=== PATIENT | female | born 1965 | race Caucasian/White ===

== ENCOUNTER 2024-10-04 16:49 | Inpatient (IN) | payer MEDICARE, OTHER, SELFPAY ==
[2024-10-04] VITALS (12 sets, daily range): BP systolic 88–127; BP diastolic 49–94; BMI 18.5; BMI 20.8
[2024-10-04 11:57] LABS: % Basophils 0.7 % (0-2); % Eosinophils 1.5 % (0-6); % Immature Granulocytes 0.2 % (0-0.5); % Lymphocytes 40.1 % (20.5-51.1); % Monocytes 8.6 % (1.7-9.3); % Neutrophils 48.9 % (42.2-75.2); Absolute Basophils 0.1 10^3/uL (0-0.2); Absolute Eosinophils 0.1 10^3/uL (0-0.7); Absolute Lymphocytes 3.5 10^3/uL (1.2-3.4); Absolute Monocytes 0.7 10^3/uL (0.1-0.6); Absolute Neutrophils 4.2 10^3/uL (1.4-6.5); Hematocrit 42.9 % (37.0-47.0); Hemoglobin 15.4 g/dL (12.0-16.0); Mean Corp Hgb Conc. 35.9 g/dL (33.0-37.0); Mean Corpuscular Hgb 34.9 pg (27.0-31.0); Mean Corpuscular Volume 97.3 fL (81.0-99.0); Mean Platelet Volume 8.8 fL (7.4-10.4); Nucleated Red Blood Cells % 0 %; Platelet Count 347 10^3/uL (130-400); Red Blood Cell Count 4.41 10^6/uL (4.20-5.40); Red Cell Dist. Width 12.4 % (11.5-14.5); White Blood Cell Count 8.6 10^3/uL (4.8-10.8)
[2024-10-04 12:08] LABS: Blood Urea Nitrogen 14 mg/dl (7-17); Carbon Dioxide 29 mmol/L (22-30); Chloride 94 mmol/L (98-107); Glucose 115 mg/dl (70-99); Sodium 136 mmol/L (135-145); eGFR > 60.00
--- NOTE | 2024-10-04 14:02 | ED.GENMED ---
History of Present Illness
General
Chief Complaint: Failure to Thrive
Time Seen by Provider: 10/04/24 13:29
History of Present Illness
History of Present Illness:
59-year-old female with history of breast cancer with metastasis to the bone presents to the emergency department for evaluation of intractable nausea and vomiting. This is apparently been ongoing for the past several weeks and she has been able to
eat or drink much in the past week or more. She has been admitted to both [facility] in [facility] for the symptoms, underwent an EGD just under 2 weeks ago at [place] that did not show any obvious abnormalities. She was seen by
visiting nurses today who felt that she looked unwell and referred her to come to the emergency department. She follows with [facility], Dr Nichols.
Review of Systems
Review of Systems
Allergies reviewed?: Yes
All Other Systems: ROS reviewed and negative except as documented in HPI and ROS
Phy Exam
Physical Exam
Physical Exam:
GEN: Thin and frail, appears uncomfortable
Eyes: PERRLA, EOMs intact, no scleral icterus
HENT: NCAT, oral mucosa moist, no JVD, no cervical adenopathy.
Lungs: CTAB, no wheezes, rales, rhonchi, normal chest wall excursion
Cardiac: Mildly tachycardic, regular
Abdomen: Soft, diffusely tender to all 4 quadrants,
Neuro: AO x 3
MSK: No gross deformity or ecchymosis. No edema. No digital clubbing
Skin: No rashes, petechiae. Normal color, no pallor or jaundice.
Psych: Calm, cooperative, proper hygiene
Course
Orders/Labs/Results
Orders:
Orders
10/04/24 Breakfast
Clear Liquid
At Your Request: Limited, Corporate Representative Required
10/04/24 11:35
Basic Metabolic Panel Urgent
Complete Blood Count/With Diff Urgent
10/04/24 14:03
Comprehensive Metabolic Panel Urgent
Urinalysis Reflex To Culture Urgent
Date Specimen was Collected: 10/04/24
Time Specimen was Collected: 14:02
Urine Microscopic Reflex Cult Urgent
10/04/24 14:58
Prochlorperazine [Compazine] 10 mg IM NOW STA
10/04/24 15:03
CR Obstruct Series W/pa Chest Urgent
Comment:
Reason For Exam: abd pain, constipation
10/04/24 15:16
Prochlorperazine [Compazine] 10 mg IV NOW STA
10/04/24 16:20
Lorazepam [Ativan] 0.5 mg IV NOW STA
10/04/24 16:25
Admit/Transfer Patient As Directed
Co-Sign Provider:
Level of Care: Inpatient admission
Assign to:: Medical/Surgical
Physician / Group: Elizabethy
Diagnosis: Intractable Nausea/Vomiting
Reason for Hospitalization: antiemetics, IVFs
Expected length of stay greater than two midnights?: Yes
ELOS- Estimated Length of Stay in days: 3
I certify the patient meets the requirements for IP care: Yes
0.9% Sodium Chloride [Nss (Preservative Free)] 0.25 ml IV NOW STA
PRN Pain Medication Management As Directed
May give lesser potent ordered pain med per pt: Yes
preference::
Protocol:: Medication orders for pain may be administered in a
manner that supports deferring to patient preference
when the pt is:
- Requesting an ordered lesser potent pain medication.
Least to most potent pain medications are defined
as: acetaminophen < NSAID < tramadol < opioids
(morphine, oxycodone, hydromorphone).
- Requesting a lesser dose of the same medication IF
ORDERED.
- Requesting a less intrusive route of administration
if both routes are prescribed by the provider (PO <
IV).
10/04/24 16:26
Code Status As Directed
Resuscitation Status: Full Code
10/04/24 16:27
Urine Drug Abuse Screen Urgent
10/04/24 16:29
ECG [Electrocardiogram (*1)] Urgent
Reason for Study: QTc Monitoring
10/04/24 18:18
Acetaminophen [Tylenol] 650 mg PO Q4HPRN PRN
Enoxaparin Sodium [Lovenox] 40 mg SC QPM
HYDROmorphone [Dilaudid] 0.5 mg IV Q3HPRN PRN
Ondansetron Injectable [Zofran] 4 mg IV Q6HPRN PRN
Promethazine [Phenergan] 25 mg 0.9% Sodium Chloride 50 ml [Nss] 50 ml IV Q4HPRN
10/04/24 18:18
Fentanyl Patch Confirmation [phone]
I&O [Intake/ Output] As Directed
Frequency: q12h
Vital Signs As Directed
Frequency: Per unit guidelines
Weight As Directed
Frequency: Daily
DX Deep Vein Thrombosis Video Routine
10/04/24 18:30
KCl 20 Meq/D5.9%Sodchl 1000 ml [D5/0.9% with KCL 20 MEQ] 20 meq in 1,000 ml IV 100 mls/hr
10/04/24 18:35
Lorazepam [Ativan] 0.5 mg PO Q8HPRN PRN
10/04/24 20:00
FentaNYL 12 MCG/HR PATCH [Duragesic 12 Mcg/Hr Patch] 1 patch TRANSDERM Q72H
10/05/24 06:00
Basic Metabolic Panel IN AM
Complete Blood Count/No Diff IN AM
Magnesium IN AM
Phosphorus IN AM
10/05/24 08:00
Pantoprazole [Protonix IV] 40 mg IV DAILY
10/07/24 20:00
REMOVE fentaNYL PATCH [Remove Duragesic Patch] See Dose Instructions REMOVE Q72H
Abnormal Lab Results
10/04/24 10/04/24
11:35 14:03
MCH 34.9 H pg
(27.0-31.0)
Absolute Lymphs (auto) 3.5 H 10^3/uL
(1.2-3.4)
Absolute Monos (auto) 0.7 H 10^3/uL
(0.1-0.6)
Chloride 94 L mmol/L
(98-107)
Creatinine 0.4 L mg/dL 0.5 L mg/dL
(0.6-1.0) (0.6-1.0)
Glucose 115 H mg/dl 100 H mg/dl
(70-99) (70-99)
Urine Ketones 2+ A
(Negative)
Urine Bilirubin 1+ A
(Negative)
Urine Urobilinogen 3+ A
(Neg - 1+)
Leukocyte Esterase Rfl Trace A
(Negative)
Urine Bacteria (Reflex) Few A
(Negative)
10/04/24 11:35
10/04/24 14:03
Vital Signs
Initial and Last Documented VS:
Initial Vital Signs
Temp Pulse Resp BP Pulse Ox
98 F 117 18 127/93 95
10/04/24 11:28 10/04/24 11:28 10/04/24 11:28 10/04/24 11:28 10/04/24 11:28
Last Documented Vital Signs
Temp Pulse Resp BP Pulse Ox
98.6 F 103 16 119/81 94
10/04/24 18:20 10/04/24 18:20 10/04/24 18:20 10/04/24 18:20 10/04/24 18:29
MDM/Problems Addressed
MDM/Problems Addressed:
The patient is too functionally frail and not tolerating p.o. intake to discharge home, unclear cause to her intractable nausea and vomiting as she had a recent normal endoscopy done at [facility]. Do not see indication for CT of the abdomen
and pelvis at this time. Will admit for further evaluation and management
*Critical Care Note
Total Time (30-74mins, 75-104mins- exclusive of procedures): Not Applicable
Update Note
Update Note:
Phone call with pt's oncologist Dr Nichols. Feels that there is no evidence of worsening 'from a cancer standpoint'. Considers whether her opiates could be contributing to her symptoms.
ED Attending Note
-
Portions of this chart may have been created with voice recognition software.� Occasional wrong word or��sound alike� substitutions may have occurred due to the inherent limitations of voice recognition software.
Discharge Plan
Departure
Patient Disposition: Admit
Date of Disposition: 10/04/24
Time of Disposition: 15:42
Admit to: Med/Surg
Presentation/result/management discussed w/ accepting MD/DO: Hospitalist
Discharge Problem:
Intractable vomiting, Adult failure to thrive, Chronic pain
Interventions
Interventions:
*Risk Screen - Suicide Last Done: 10/04/24 18:14
*General Assessment Last Done: 10/04/24 11:28
*Neglect/Abuse Screening Last Done: 10/04/24 11:28
ED- Fall Risk Assessment Last Done: 10/04/24 18:26
*ED COVID-19 Vaccine History Last Done: 10/04/24 18:20
*Nursing Disposition Last Done: 10/04/24 18:26
Discharge Date and Time
Discharge Date/Time: 10/04/24 18:37
[2024-10-04 14:14] LABS: Urine Albumin Trace (Neg - Trace); Urine Bilirubin 1+ (Negative); Urine Character Clear (Clear); Urine Color Amber; Urine Glucose Negative (Negative); Urine Ketone 2+ (Negative); Urine Leukocyte Trace (Negative); Urine Nitrite Negative (Negative); Urine Occult Blood Negative (Negative); Urine Specific Gravity 1.025 (<1.030); Urine Urobilinogen 3+ (Neg - 1+)
[2024-10-04 14:27] LABS: ALT (SGPT) 34 U/L (0-35); AST (SGOT) 26 U/L (14-36); Albumin 4.3 g/dl (3.5-5.0); Alkaline Phosphatase 38 U/L (38-126); Blood Urea Nitrogen 12 mg/dl (7-17); Calcium 9.3 mg/dl (8.4-10.2); Carbon Dioxide 28 mmol/L (22-30); Chloride 98 mmol/L (98-107); Estimated Creatinine Clearance 72 ml/min; Glucose 100 mg/dl (70-99); Potassium 3.5 mmol/L (3.5-5.1); Sodium 137 mmol/L (135-145); Total Bilirubin 0.8 mg/dl (0.2-1.3); Total Protein 6.7 g/dl (6.3-8.2); eGFR > 60.00
[2024-10-04 14:53] LABS: Urine Amorphous Seen
[2024-10-04 14:54] LABS: Urine Bacteria Few (Negative); Urine Red Blood Cell 0-2 /HPF (0-2)
[2024-10-04] MEDS: COMPAZINE 10 MG IV (15:17)
--- NOTE | 2024-10-04 15:49 | PHANOTE ---
[email or web address](10/04/24)-Spoke with family at bedside, due to patient unable to swallow, has not taken medications for weeks. This includes her pain medications and nausea medications, despite filling them. Per family, patient mainly gets IV
medications while in hospital.
--- NOTE | 2024-10-04 16:21 | HPS.HSE ---
Family Physician
-
Family Physician: Emma Cannon
Chief Complaint
-
Intractable Vomiting
History of Present Illness
Patient is a 59 y/o female past medical history of metastatic breast cancer who presents with intractable nausea and vomiting. Patient reports she has been feeling unwell for the past 2 months. She has been hospitalized multiple times at outside
hospitals due to persistent vomiting. Patient reports she has lost 40 lbs over the last several months. She has been unable to tolerate any chemotherapy treatment for her breast cancer due to significant symptoms. She reports generalized
abdominal pain associated with significant constipation. She denies fevers, sweats or chills.
Medical History
Past Medical History
Past Medical History: Reports Other
Additional Past Medical History:
Metastatic Breast Cancer
Chronic Pain with Opioid Dependence
Generalized Anxiety Disorder]
Past Surgical History: Reports Other
Additional Past Surgical History:
Hysterectomy
Social History
Tobacco: Non-smoker
Drug: Marijuana (Patient reports last usage at least a month ago)
Family History
Family History: Not pertinent
Allergies / Home Medications
Allergies reflects when Allergies were last updated in [employer].
Home Medications with original date entered in [employer]
Allergy/Medication List:
Allergies
Allergy/AdvReac Type Severity Reaction Status Date / Time
No Known Allergies Allergy Verified 10/04/24 11:27
Home Medications
docusate sodium 100 mg capsule (Colace) 100 mg PO BIDPRN PRN constipation 10/04/24
lorazepam 0.5 mg tablet 0.5 mg PO DAILYPRN PRN anxiety 10/04/24
morphine 30 mg tablet,extended release 30 mg PO [id number] PRN severe pain 10/04/24
omeprazole 20 mg capsule,delayed release 20 mg PO BIDPRN PRN gerd 10/04/24
ondansetron HCl 8 mg tablet 8 mg PO Q8HPRN PRN nausea 10/04/24
oxycodone-acetaminophen 10 mg-325 mg tablet 1 tab PO Q6HPRN PRN severe pain 10/04/24
Review of Systems
-
A 12 point ROS was completed and negative except as noted: Yes
Constitutional: Denies Fever or Chills
Respiratory: Denies Cough or Trouble Breathing
Cardiac: Denies Chest Pain or Palpitations
Abdomen/GI: Reports See HPI
Physical Exam
Vital Signs
Vital Signs
Temp Pulse Resp BP Pulse Ox
98 F 100 16 95/72 94
10/04/24 11:28 10/04/24 13:00 10/04/24 13:00 10/04/24 12:00 10/04/24 13:00
Physical Exam
General: Comfortable and Conversant
HEENT: NormoCephalic, Anicteric and Atraumatic
Respiratory: Clear and Non Labored Respirations
Cardiac: S1/S2 and Regular Rhythm
GI: Soft, Non Distended and Other (Mild tenderness throughout; Slightly hyperactive bowel sounds)
Rectal: Deferred by Provider
Musculoskeletal: No Clubbing, No Cyanosis and No Edema
Skin: Warm and Dry
Neuro: Awake, Alert, Oriented and Nonfocal/grossly intact
Psych: Calm
Laboratory Results
-
10/04/24 11:35
10/04/24 14:03
Laboratory Results
Total Bilirubin 0.8 mg/dl (0.2-1.3) 10/04/24 14:03
AST 26 U/L (14-36) 10/04/24 14:03
ALT 34 U/L (0-35) 10/04/24 14:03
Alkaline Phosphatase 38 U/L (38-126) 10/04/24 14:03
Data Reviewed
-
Lab Data: Labs Reviewed by me
Impression/Plan
-
Intractable Nausea/Vomiting, suspect multi-factorial with component of opioid/benzo withdrawal
-Await Obstruction Series - Consider CT scan
-Plan for bowel regimen if imaging negative for obstruction
-Allow clear liquids
-Continue Zofran/Phenergan prn for nausea - Check ECG to evaluate QTc
Chronic Pain with Opioid Dependence
-Patient has been having difficulty tolerating MS Contin - Transition to Fentanyl Patch
-Continue Dilaudid prn breakthrough pain
Generalized Anxiety Disorder
-Continue lorazepam prn
Metastatic Breast Cancer
-Patient has not been able to tolerate chemotherapy due to symptoms
DVT proph: Lovenox
Code Status: Full Code
--- NOTE | 2024-10-04 16:43 | W.PN.UPDATE ---
Update Note
Progress Note Update
This note serves as an addendum to the H&P by roll reclaimer OSBALDO Ju MEYERS
HPI
59F HX metastatic breast CA to the bone, narcotic dependent chr pain syndrome seen at ER :
- evaluation of intractable nausea and vomiting
- has been ongoing for the past several weeks
- able to eat or drink much in the past week or more.
- recent admission to both [facility] in [facility] for the symptoms
- underwent an EGD just under 2 weeks ago at [place] that did not show any obvious abnormalities. S
- seen by VN today referred her to come to the emergency department.
- She follows with [facility] Dr Nichols.
PHX: as above
Reviewed VS: ST low 100s BP 125/93 ==> 95/70 POx 94 on RA
PE
Gen: in distress with pain
HEENT: anicteric , dry OM
Neck: supple
Lungs: CTA
Cor: RRR ST
Abdomen: soft , NG , NRTD
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
MS: no edema
Psych: anxious
Data
Unremarkable CBC and CMP
Pending CXR/AXR report
NO PRIOR hospitalist admission:
ASSESSMENT & PLAN
Intractable nausea and vomiting of unclear origin : Recent EGD at OSH ( [facility] ) reported unremarkable
DDx: Narcotic associated withdrawal due to emesis, constipation
Benign abdominal exam
- IV NS 100/H
- PRN anti emetics : Zofran or Phenergan - EKG to eval baseline QTc
- Pain control: Fentanyl patch 12 mcg wit PRN IV Dilaudid for break thru pain
- Await CXR/AXR to evaluate Obstruction then BW regime
HX metastatic breast CA to the bone: Known to [facility]
- Onco consult
HX chronic pain ( MS Cont 30mg q12h, Percocet 10/325 1 tab q6h PRN)
- Fentanyl in place of MS Cot while intractable emesis
Lorazepam PRN dependent Anxiety
- PO Lorazepam 0.5mg q8h prn
DVT Px: LMWH
Code: Full code
IP MS
[2024-10-04] MEDS: ATIVAN 0.5 MG IV (16:47)
--- NOTE | 2024-10-04 18:35 | PTCARENOTE ---
Received pt to 2N via stretcher from ED. Pt ambulated from stretcher to bed with assistance of this RN and no assistive devices, VSS, AAOx3 but drowsy, pt oriented to unit. Pt resting comfortably in bed with call stewart at bedside.
[2024-10-04] MEDS: SENOKOT 17.2 MG PO (18:59)
[2024-10-04] MEDS: DURAGESIC 12 MCG/HR PATCH 1 PATCH TRANSDERM (19:00)
[2024-10-04] MEDS: LOVENOX 40 MG SC (19:29)
[2024-10-04] MEDS: DULCOLAX 10 MG RECTAL (19:30)
[2024-10-04] MEDS: D5/0.9% with KCL 20 MEQ 1000 IV (19:30)
[2024-10-04] MEDS: DILAUDID 0.5 MG IV (23:47)
[2024-10-04] MEDS: ZOFRAN 4 MG IV (23:47)
[2024-10-05 00:16] LABS: Amphetamines Negative (Negative); Barbiturates Negative (Negative)
[2024-10-05 00:17] LABS: Benzodiazepines Positive (Negative); Buprenorphine Negative (Negative); Cocaine Negative (Negative); Marijuana Negative (Negative); Methadone Negative (Negative); Methamphetamines Negative (Negative); Opiates Positive (Negative); Phencyclidine Negative (Negative); Tricyclic Antidepressants Negative (Negative)
[2024-10-05 01:59] LABS: Fentanyl, Urine Negative (Negative)
[2024-10-05] MEDS: D5/0.9% with KCL 20 MEQ 1000 IV ×2 (05:06→14:03)
[2024-10-05 05:09] VITALS: BMI 21.3
[2024-10-05] MEDS: ZOFRAN 4 MG IV ×2 (05:15→16:14)
[2024-10-05 06:43] LABS: Blood Urea Nitrogen 9 mg/dl (7-17); Calcium 8.8 mg/dl (8.4-10.2); Carbon Dioxide 27 mmol/L (22-30); Chloride 104 mmol/L (98-107); Estimated Creatinine Clearance 73 ml/min; Glucose 110 mg/dl (70-99); Magnesium 1.8 mg/dl (1.6-2.3); Phosphorus 2.3 mg/dl (2.5-4.5); Potassium 3.3 mmol/L (3.5-5.1); Sodium 141 mmol/L (135-145); eGFR > 60.00
[2024-10-05 07:00] VITALS: BP 81/63
[2024-10-05 07:05] LABS: Hematocrit 34.8 % (37.0-47.0); Hemoglobin 12.1 g/dL (12.0-16.0); Mean Corp Hgb Conc. 34.8 g/dL (33.0-37.0); Mean Corpuscular Hgb 35.2 pg (27.0-31.0); Mean Corpuscular Volume 101.2 fL (81.0-99.0); Mean Platelet Volume 8.8 fL (7.4-10.4); Platelet Count 255 10^3/uL (130-400); Red Blood Cell Count 3.44 10^6/uL (4.20-5.40); Red Cell Dist. Width 12.5 % (11.5-14.5); White Blood Cell Count 7.7 10^3/uL (4.8-10.8)
[2024-10-05] MEDS: SENOKOT 17.2 MG PO ×2 (07:07→20:07)
[2024-10-05] MEDS: PROTONIX IV 40 MG IV (07:08)
[2024-10-05] MEDS: NSS (PRESERVATIVE FREE) 10 ML IV (07:10)
[2024-10-05] MEDS: TYLENOL 650 MG PO (07:12)
--- NOTE | 2024-10-05 07:12 | W.PN.HOSP.TC ---
Today's Communication/Plan
-
see bold
Assessment / Plan
Assessment / Plan
Gen: NAD, AAOx3.
Eyes: EOMI, PERRLA, no scleral icterus.
Neck: supple.
CV: RRR, +S1/S2, no m/r/g.
Resp: CTAB, no rales, wheezes, or rhonchi.
Abd: +BS, soft, NT, ND
Skin: No rashes.
Neuro: CN 2-12 intact, non-focal.
Psych: Normal mood and affect.
Intractable Nausea/Vomiting, suspect multi-factorial with component of opioid/benzo withdrawal:
-Awaiting Obstruction Series read
-Plan for bowel regimen if imaging negative for obstruction
-Allow clear liquids
-Continue Zofran/Phenergan PRN
Chronic Pain with chronic opioid use with dependence:
-Patient has been having difficulty tolerating MS Contin - Transitioned to Fentanyl Patch
-Continue Dilaudid prn breakthrough pain
Other problems:
Generalized Anxiety Disorder: Continue lorazepam prn
Metastatic Breast Cancer: has not been able to tolerate chemotherapy due to symptoms
FULL/Lovenox
Anticipated Discharge: Within 24 hours
Subjective/Interval History
-
Date of Service: October 05, 2024
Currently without vomiting. Abdominal pain improving.
Objective Data
-
Labs:
Laboratory Results
10/05/24
06:04
WBC 7.7
Hgb 12.1 D
Hct 34.8 L
Plt Count 255 D
Sodium 141
Potassium 3.3 L
Chloride 104
Carbon Dioxide 27
BUN 9
Creatinine 0.4 L
Glucose 110 H
Calcium 8.8
Vital Signs:
Vital Signs
Temp Pulse Resp BP Pulse Ox
98.5 F 108 16 108/79 98
10/04/24 23:30 10/04/24 23:30 10/04/24 23:30 10/04/24 23:30 10/04/24 23:30
I&O
10/04/24 10/05/24 10/06/24
06:59 06:59 06:59
Intake Total 0 / 1680
Balance 0 / 1679
[2024-10-05 08:27] VITALS: BP 104/68
[2024-10-05] MEDS: PHENERGAN 51 MG IV (08:28)
--- NOTE | 2024-10-05 08:54 | CON.ONC ---
Impression
Impression
Nausea, vomiting, severe constipation
Metastatic breast cancer, on ribociclib and fulvestrant
Cancer related pain
Plan
Plan
She has had extensive evaluation for nausea and vomiting, including CT scans, upper endoscopy, and brain MRI, done at outside hospitals in the past couple months, all without acute findings
I suspect her nausea and vomiting is secondary to significant constipation; she agrees
Await official read from [facility]. Assuming no evidence for obstruction, would maximize bowel regimen
Outpatient oncology f/u with Dr. Nichols; will sign off, please call w/ questions
Patient History
History of Present Illness
This is a 59-year-old female with history of metastatic breast cancer, currently on treatment with monthly fulvestrant injections and oral Ribociclib. She is a patient of Dr. Nichols. She has had multiple hospital admissions over the past few
months with nausea and vomiting. She has undergone extensive workup including CT scans of the abdomen and pelvis at [facility] on September 03, 2024 which showed no acute findings in the abdomen or pelvis to account for her symptoms.
She underwent brain MRI in late July 2024 which was without acute findings. She underwent upper endoscopy on September 21, 2024 which showed a 3 cm hiatal hernia, irregular Z-line, normal mucosa in the esophagus, a 5 mm sessile polyp in the
greater curvature of the stomach, diffuse mild inflammation and erythema on the greater curvature of the stomach and in the gastric antrum. Biopsies were taken, but results not available to me.
She tells me she has not had a bowel movement in 2 months, though passes gas regularly. She just ordered a liquid diet for breakfast, she is feeling hungry.
She takes a small orange pill once daily for constipation, though she states she has tried multiple other options, including enema and MiraLAX.
KUB done yesterday still not read.
She takes opioid pain medication for chronic pain, including extended release morphine, 30 mg every 12 hours, and oxycodone 5 mg as needed.
Past-Medical/Surgical History
Past medical and surgical history includes metastatic breast cancer as above, anemia. She has a history of PAM/BSO for fibroids.
Social history: She is a former smoker, quit in 2022. She denies regular alcohol use. 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 She is with 2 children.
Family history: Noncontributory
Patient Medication
�Medication �Instructions �Recorded �Confirmed �Last Taken �Type
docusate sodium 100 mg capsule 100 mg PO BIDPRN PRN constipation 10/04/24 10/04/24 Unknown History
(Colace)
lorazepam 0.5 mg tablet 0.5 mg PO DAILYPRN PRN anxiety 10/04/24 10/04/24 Unknown History
morphine 30 mg tablet,extended 30 mg PO [id number] PRN severe pain 10/04/24 10/04/24 Unknown History
release
omeprazole 20 mg capsule,delayed 20 mg PO BIDPRN PRN gerd 10/04/24 10/04/24 Unknown History
release
ondansetron HCl 8 mg tablet 8 mg PO Q8HPRN PRN nausea 10/04/24 10/04/24 Unknown History
oxycodone-acetaminophen 10 mg-325 1 tab PO Q6HPRN PRN severe pain 10/04/24 10/04/24 Unknown History
mg tablet
Active Medications
Generic Name Dose Route Start Last Admin
Trade Name Freq PRN Reason Stop Dose Admin
Acetaminophen 650 mg 10/04/24 18:18 10/05/24 07:12
Acetaminophen 325 Mg Tablet PO 11/01/24 18:17 650 mg
Q4HPRN PRN Administration
mild pain/ fever>100.5F
Enoxaparin Sodium 40 mg 10/04/24 18:18 10/04/24 19:29
Enoxaparin Sodium 40 Mg/0.4 Ml Syringe SC 11/01/24 18:17 40 mg
QPM MALENA Administration
Fentanyl 1 patch 10/04/24 20:00 10/04/24 19:00
Fentanyl 12 Mcg/Hr Patch TRANSDERM 10/18/24 19:59 1 patch
Q72H MALENA Administration
Hydromorphone HCl 0.5 mg 10/04/24 18:18 10/04/24 23:47
Hydromorphone 0.5 Mg/0.5 Ml Syringe IV 10/18/24 18:17 0.5 mg
Q3HPRN PRN Administration
severe pain
Potassium Chloride/Dextrose/Sod Cl 20 meq in 1,000 mls @ 100 mls/hr 10/04/24 18:30 10/05/24 05:06
D5/0.9% With Kcl 20 Meq IV 1,000 mls
.Q10H MALENA Administration
Promethazine HCl 25 mg/ Sodium 51 mls @ 102 mls/hr 10/04/24 18:18 10/05/24 08:28
Chloride IV 11/01/24 18:17 51 mls
Q4HPRN PRN Administration
intractable nausea/vomiting
Lorazepam 0.5 mg 10/04/24 18:35
Lorazepam 0.5 Mg Tablet PO 11/01/24 18:34
Q8HPRN PRN
anxiety
Ondansetron HCl 4 mg 10/04/24 18:18 10/05/24 05:15
Ondansetron 4 Mg/2 Ml Vial IV 11/01/24 18:17 4 mg
Q6HPRN PRN Administration
NAUSEA/VOMITING
Pantoprazole Sodium 40 mg 10/05/24 08:00 10/05/24 07:08
Pantoprazole Sodium 40 Mg/10 Ml Vial IV 11/02/24 07:59 40 mg
DAILY MALENA Administration
Patch Removal 0 patch 10/07/24 20:00
Remove Fentanyl Patch REMOVE 10/21/24 19:59
Q72H MALENA
Sennosides 17.2 mg 10/04/24 20:00 10/05/24 07:07
Sennosides (Senokot) 8.6 Mg Tablet PO 12/23/24 19:59 17.2 mg
BID MALENA Administration
Sodium Chloride 10 ml 10/05/24 08:00 10/05/24 07:10
Sodium Chloride 0.9% (Preservative Free) 10 Ml Vial IV 11/02/24 07:59 10 ml
DAILY MAELNA Administration
Review of Systems
-
History Source: Patient and Records
Constitutional: Reports Weight Loss and No Appetite
GI: Reports Nausea, Vomiting and Constipated
Physical Exam
-
General: Well Developed, Well Nourished, No Apparent Distress and Comfortable
HEENT: Moist Mucous Membranes; Negative Jaundice
Cardiology: Normal Sinus Rhythm
Pulmonary: Clear
GI: Soft, Normal Bowel Sounds, Flat and No Organomegaly; Negative Distended
Musculoskeletal: No Clubbing, No Cyanosis and No Edema
Extremities: No C/C/E
Neurology: Non Focal, No Lateralizing Symptoms and No Word Finding Difficulty
Skin: Warm and Dry
Psych: Calm and Intact Judgement/Insight
Labs
Lab Results
WBC 7.7 10^3/uL (4.8-10.8) 10/05/24 06:04
RBC 3.44 10^6/uL (4.20-5.40) L 10/05/24 06:04
Hgb 12.1 g/dL (12.0-16.0) D 10/05/24 06:04
Hct 34.8 % (37.0-47.0) L 10/05/24 06:04
MCV 101.2 fL (81.0-99.0) H 10/05/24 06:04
MCH 35.2 pg (27.0-31.0) H 10/05/24 06:04
MCHC 34.8 g/dL (33.0-37.0) 10/05/24 06:04
RDW 12.5 % (11.5-14.5) 10/05/24 06:04
Plt Count 255 10^3/uL (130-400) D 10/05/24 06:04
MPV 8.8 fL (7.4-10.4) 10/05/24 06:04
Abs Immat Gran (auto) 0.0 10^3/uL (0-0.05) 10/04/24 11:35
Absolute Neuts (auto) 4.2 10^3/uL (1.4-6.5) 10/04/24 11:35
Absolute Lymphs (auto) 3.5 10^3/uL (1.2-3.4) H 10/04/24 11:35
Absolute Monos (auto) 0.7 10^3/uL (0.1-0.6) H 10/04/24 11:35
Absolute Eos (auto) 0.1 10^3/uL (0-0.7) 10/04/24 11:35
Absolute Basos (auto) 0.1 10^3/uL (0-0.2) 10/04/24 11:35
Immature Gran % 0.2 % (0-0.5) 10/04/24 11:35
Neutrophils % 48.9 % (42.2-75.2) 10/04/24 11:35
Lymphocytes % 40.1 % (20.5-51.1) 10/04/24 11:35
Monocytes % 8.6 % (1.7-9.3) 10/04/24 11:35
Eosinophils % 1.5 % (0-6) 10/04/24 11:35
Basophils % 0.7 % (0-2) 10/04/24 11:35
Creatinine 0.4 mg/dL (0.6-1.0) L 10/05/24 06:04
Vital Signs
Vital Signs
Temp Pulse Resp BP Pulse Ox
97.8 F 86 16 104/68 95
10/05/24 07:00 10/05/24 08:27 10/05/24 07:00 10/05/24 08:27 10/05/24 07:00
--- NOTE | 2024-10-05 09:41 | PTCARENOTE ---
BP this AM was 81/63. BP rechecked an hour and a half later at 104/68. IVF running, pt asymptomatic at this time.
--- NOTE | 2024-10-05 11:43 | CM ---
Patient seen at bedside.
Dx: intractable nausea/vomiting
PMH: metastatic breast ca, (has port) anemia
IA completed
Lives [place] a [place] with , daughter, grand-daughter with 4 steps to enter.
PLOF: ambulates with cane
DME: kristin Espinoza, states looking into electric w/c
Patient is current with [facility]
PCP: Emma Cannon
Pharmacy: [facility], [address] [place] [address]
PLAN: home, [facility] health
[2024-10-05] MEDS: MIRALAX 17 GRAMS PO (14:03)
[2024-10-05 15:00] VITALS: BP 116/71
[2024-10-05] MEDS: DILAUDID 0.5 MG IV ×3 (16:14→23:19)
[2024-10-05] MEDS: LOVENOX 40 MG SC (17:28)
[2024-10-05 23:45] VITALS: BP 106/72
[2024-10-06] MEDS: D5/0.9% with KCL 20 MEQ 1000 IV (00:07)
--- NOTE | 2024-10-06 04:41 | DOWNTIME ---
There was a [employer] Agent Downtime on 10/06/2024 from 0100 to 10/06/2024 at 0350. Downtime documentation of patient's care, including medication administrations, has been reconciled in the electronic record per guidelines. Refer to the
patient's paper chart under the miscellaneous tab to see printed paper medication records and downtime forms.
[2024-10-06] MEDS: TYLENOL 650 MG PO (05:19)
[2024-10-06 06:00] VITALS: BMI 22.0
[2024-10-06 07:03] VITALS: BP 112/76
--- NOTE | 2024-10-06 08:16 | W.PN.HOSP.TC ---
Today's Communication/Plan
-
d/c
Assessment / Plan
Assessment / Plan
Gen: NAD, AAOx3.
Eyes: EOMI, PERRLA, no scleral icterus.
Neck: supple.
CV: remains RRR, +S1/S2, no m/r/g.
Resp: remains CTAB, no rales, wheezes, or rhonchi.
Abd: remains +BS, soft, NT, ND
Skin: No rashes.
Neuro: CN 2-12 intact, non-focal.
Psych: Normal mood and affect.
OBST series: Small volume widespread colonic stool. Nonobstructive bowel gas pattern. No free air. Findings suspicious for marked widespread diffuse bony metastatic disease throughout the chest, abdomen and pelvis.
Intractable Nausea/Vomiting, suspect multi-factorial with component of opioid/benzo withdrawal:
-OBST series above, no evidence of obstruction
-cont Miralax, reg diet
-Continue Zofran/Phenergan PRN
Chronic Pain with chronic opioid use with dependence:
-Patient has been having difficulty tolerating MS Contin - Transitioned to Fentanyl Patch
-Continue Dilaudid prn breakthrough pain
Other problems:
Generalized Anxiety Disorder: Continue lorazepam prn
Metastatic Breast Cancer: has not been able to tolerate chemotherapy due to symptoms
FULL/Lovenox
Medically cleared for d/c.
Total time spent on d/c = 31 min. This included today's physical exam, progress note, review of laboratory and diagnostic data, preparation of discharge documents and prescriptions, and discussions about the pt's hospital course and discharge plan
with the patient and other medical front desk coordinator involved in the patient's care.
Anticipated Discharge: Today
Subjective/Interval History
-
Date of Service: October 06, 2024
No new complaints.
Objective Data
-
Vital Signs:
Vital Signs
Temp Pulse Resp BP Pulse Ox
97.6 F 85 17 112/76 97
10/06/24 07:03 10/06/24 07:03 10/06/24 07:03 10/06/24 07:03 10/06/24 07:03
I&O
10/05/24 10/06/24 10/07/24
06:59 06:59 06:59
Intake Total 1680 / 1680 3121 / 3121
Output Total 550 / 550
Balance 1680 / 1680 2571 / 2571
[2024-10-06] MEDS: DILAUDID 0.5 MG IV (08:30)
[2024-10-06] MEDS: MIRALAX 17 GRAMS PO (09:02)
[2024-10-06] MEDS: NSS (PRESERVATIVE FREE) 10 ML IV (09:02)
[2024-10-06] MEDS: SENOKOT 17.2 MG PO (09:02)
[2024-10-06] MEDS: PROTONIX IV 40 MG IV (09:03)
[2024-10-06 11:37] VITALS: BP 104/72
--- NOTE | 2024-10-06 11:38 | CM ---
Patient seen at bedside.
Called Rosana from [facility] as patient discharging today.
Referral in [facility]
PLAN: Home, DON [facility]
to transport
[facility]
Fax #: [phone]
--- NOTE | 2024-10-06 15:36 | W.DCSUMMARY ---
Discharge Summary
Discharge Data
Date of Admission: 10/04/24
Date of Discharge: 10/06/24
-
Pending Results: No
Hospital Course
Primary diagnoses:
Intractable nausea and vomiting
Secondary diagnoses:
Chronic Pain with chronic opioid use with dependence
Generalized Anxiety Disorder
Metastatic Breast Cancer
Consultants:
Oncology
Imaging:
OBST series: Small volume widespread colonic stool. Nonobstructive bowel gas pattern. No free air. Findings suspicious for marked widespread diffuse bony metastatic disease throughout the chest, abdomen and pelvis.
Hospital course: 59-year-old female who presented with a chief complaint of intractable vomiting as outlined in the H&P done on admission. She had stated she had been hospitalized multiple times at outside hospitals due to intractable vomiting.
Patient was treated supportively while hospitalized. She had a negative obstruction series as above. Patient stated she was having difficulty tolerating MS Contin and was transitioned to a fentanyl patch while hospitalized. Her diet was advanced
to a regular diet. She was placed on MiraLAX and counseled to continue bowel regimen on discharge. She was discharged in medically stable condition.
Discharge Plan
-
Patient Disposition: Home (Routine Discharge)
Discharge Diagnosis/Procedures: vomiting
Condition: Good
Diet: No restrictions
Activity: No restrictions
Driving Restrictions: As prior to admission
Referrals:
Emma Cannon PA-C [Family Provider] - in less than 1 week
Prescriptions:
New
sennosides [Senna Laxative] 8.6 mg Tablet
17.2 mg PO BID Qty: 0 0RF
polyethylene glycol 3350 17 gram Powder In Packet
17 g PO DAILY Qty: 0 0RF
Continued
ondansetron HCl 8 mg Tablet
8 mg PO Q8HPRN PRN (Reason: nausea)
morphine 30 mg Tablet Extended Release
30 mg PO [id number] PRN (Reason: severe pain)
lorazepam 0.5 mg Tablet
0.5 mg PO DAILYPRN PRN (Reason: anxiety)
oxycodone-acetaminophen 10-325 mg Tablet
1 tab PO Q6HPRN PRN (Reason: severe pain)
docusate sodium [Colace] 100 mg Capsule
100 mg PO BIDPRN PRN (Reason: constipation)
omeprazole 20 mg Capsule,Delayed Release(Dr/Ec)
20 mg PO BIDPRN PRN (Reason: gerd)
Discharge Orders:
Discharge Patient (As Directed); Ordered 10/06/24
Ordered By: Gonzales Suarez
Discharge Date and Time
Discharge Date/Time: 10/06/24 11:43
Print Language: ARABIC
== END 2024-10-06 11:43 | disposition home health service (06) | DRG 897 ==
LOC: 2 NORTH 16:49
PROVIDERS: Physician Assistant; Physician Assistant Medical; ADMITTING PHYSICIAN Internal Medicine; ATTENDING PHYSICIAN Internal Medicine; EMERGENCY PHYSICIAN Emergency Medicine; FAMILY PHYSICIAN Physician Assistant Medical; OTHER PHYSICIAN Internal Medicine Hematology & Oncology
DX: F11.23 Opioid dependence with withdrawal (principal); C50.919 Malignant neoplasm of unspecified site of unspecified female breast; R62.7 Adult failure to thrive; Z68.22 Body mass index [BMI] 22.0-22.9, adult; F41.1 Generalized anxiety disorder; G89.3 Neoplasm related pain (acute) (chronic)
CPT/HCPCS: 74022; 80048; 80053; 80306; 80307; 81003; 81015; 83735; 84100; 85025; 85027; 93005; 96374; 99285